=== PATIENT | female | born 1995 | race Caucasian/White ===

== ENCOUNTER 2016-09-27 22:50 | Emergency (ER) | payer SELFPAY ==
[2016-09-27 23:23] LABS: HCG URINE NEGATIVE (NEGATIVE)
[2016-09-27 23:29] LABS: APPEARANCE CLEAR (CLEAR); BILIRUBIN NEGATIVE (NEGATIVE); COLOR YELLOW (YELLOW); GLUCOSE NEGATIVE (NEGATIVE); KETONE NEGATIVE (NEGATIVE); LEUKOCYTE ESTERASE 1+ (NEGATIVE); NITRITE NEGATIVE (NEGATIVE); PROTEIN TRACE mg/dL (NEGATIVE); UROBILINOGEN NORMAL (NORMAL)
[2016-09-27 23:33] LABS: BACTERIA NONE SEEN /hpf (NONE SEEN); EPITHELIAL CELLS 0-5 /hpf (0-5); RED CELLS - URINE 0-5 /hpf (0-5)
[2016-09-27 23:42] LABS: HEMATOCRIT 35.1 % (36.0-48.0); HEMOGLOBIN 12.1 g/dL (12-16); LYMPHOCYTES 21.9 % (15-50); MCH 29.7 pg (26.0-34.0); MCHC 34.5 g/dL (31.0-37.0); MCV 86.2 fL (80.0-100.0); MEAN PLATELET VOLUME 10.2 fL (7.4-10.4); NEUTROPHILS 67.4 % (40-80); PLATELET COUNT 216 10x3/uL (130-400); RBC 4.07 10x6/uL (4.00-5.40); WBC 6.8 10x3/uL (4.8-10.8)
[2016-09-27 23:57] LABS: ALBUMIN 3.1 g/dL (3.4-5.0); ALKALINE PHOSPHATASE 71 U/L (46-116); ALT (SGPT) 16 U/L (10-68); AMYLASE - SERUM 46 U/L (25-115); BILIRUBIN - TOTAL 0.17 mg/dL (0.2-1.3); CALC OSMOLALITY 278 mosm/kg (275-300); CALCIUM 8.7 mg/dL (8.5-10.1); CARBON DIOXIDE 28.3 mmol/L (21.0-32.0); CHLORIDE - SERUM 107 mmol/L (98-107); CREATININE - SERUM 0.8 mg/dL (0.6-1.3); GLUCOSE 99 mg/dL (74-106); LIPASE 219 U/L (73-393); POTASSIUM - SERUM 3.6 mmol/L (3.5-5.1); PROTEIN - SERUM 6.6 g/dL (6.4-8.2); SODIUM 141 mmol/L (136-145); UREA NITROGEN 6 mg/dL (7-18); eGFR NON AFRICAN AMERICAN > 90 mL/min (90-120)
== END 2016-09-28 00:27 | disposition home or self-care (01) ==
LOC: D.ER 22:50
PROVIDERS: Emergency Medicine; Nurse Practitioner Acute Care
DX: K52.9 Noninfective gastroenteritis and colitis, unspecified (principal); F17.200 Nicotine dependence, unspecified, uncomplicated

== ENCOUNTER 2017-06-29 13:28 | Emergency (ER) | payer MEDICAID | END 2017-06-29 16:07 | disposition home or self-care (01) | LOC: D.ER 13:28 | DX: M23.91 Unspecified internal derangement of right knee (principal) ==

== ENCOUNTER 2017-12-18 16:06 | Emergency (ER) | payer MEDICAID ==
[~2017-12-18] VITALS: Ht 170.2 cm; Wt 84.1 kg
[2017-12-18 16:27] VITALS: Ht 170.2 cm; Wt 84.1 kg
[2017-12-18 17:03] LABS: APPEARANCE CLEAR (CLEAR); BILIRUBIN NEGATIVE (NEGATIVE); COLOR YELLOW (YELLOW); GLUCOSE NEGATIVE (NEGATIVE); KETONE NEGATIVE (NEGATIVE); NITRITE NEGATIVE (NEGATIVE); PROTEIN NEGATIVE (NEGATIVE); UROBILINOGEN NORMAL (NORMAL)
[2017-12-18 17:04] LABS: EPITHELIAL CELLS 0-5 /hpf (0-5); RED CELLS - URINE 0-5 /hpf (0-5); WHITE CELLS - URINE 0-5 /hpf (0-5); YEAST >1+ WITH HYPHAE /hpf (NONE SEEN)
[2017-12-18 17:05] LABS: BACTERIA MODERATE /hpf (NONE SEEN); HCG URINE NEGATIVE (NEGATIVE)
[2017-12-18] MEDS ORDERED: MACROBID100 MG PO (17:59)
[2017-12-18] MEDS ORDERED: DIFLUCAN150 MG PO (17:59)
[2017-12-18 18:15] VITALS: BP 117/74
== END 2017-12-18 18:15 | disposition home or self-care (01) ==
LOC: D.ER 16:06
PROVIDERS: Emergency Medicine
DX: N39.0 Urinary tract infection, site not specified (principal); B37.9 Candidiasis, unspecified

== ENCOUNTER 2017-12-26 07:34 | Emergency (ER) | payer MEDICAID ==
[~2017-12-26] VITALS: Ht 170.2 cm; Wt 81.8 kg
[~2017-12-26 07:34] MED LIST: DIFLUCAN150 MG PO; MACROBID100 MG PO
[2017-12-26 07:41] VITALS: Ht 170.2 cm; Wt 81.8 kg
[2017-12-26 08:17] LABS: BASOPHILS 0.3 % (0-2); EOSINOPHILS 2.9 % (0-7); HEMATOCRIT 38.9 % (36.0-48.0); HEMOGLOBIN 13.3 g/dL (12-16); IMMATURE GRANULOCYTES 0.1 % (0-5); LYMPHOCYTES 14.1 % (15-50); MCH 29.7 pg (26.0-34.0); MCHC 34.2 g/dL (31.0-37.0); MCV 86.8 fL (80.0-100.0); MEAN PLATELET VOLUME 10.5 fL (7.4-10.4); MONOCYTES 8.1 % (2-11); NEUTROPHILS 74.5 % (40-80); PLATELET COUNT 254 10x3/uL (130-400); RBC 4.48 10x6/uL (4.00-5.40); RDW 12.5 % (11.5-14.5); WBC 8.9 10x3/uL (4.8-10.8)
[2017-12-26 08:23] LABS: HCG SERUM POSITIVE (NEGATIVE)
[2017-12-26 08:28] LABS: APPEARANCE SL CLDY (CLEAR); BILIRUBIN NEGATIVE (NEGATIVE); COLOR YELLOW (YELLOW); GLUCOSE NEGATIVE (NEGATIVE); KETONE NEGATIVE (NEGATIVE); NITRITE NEGATIVE (NEGATIVE); PROTEIN NEGATIVE (NEGATIVE)
[2017-12-26 08:29] LABS: BACTERIA MODERATE /hpf (NONE SEEN); EPITHELIAL CELLS 0-5 /hpf (0-5); MUCUS <1+ /lpf (NONE SEEN); WHITE CELLS - URINE 0-5 /hpf (0-5)
[2017-12-26 08:31] LABS: ALBUMIN 3.6 g/dL (3.4-5.0); ALKALINE PHOSPHATASE 63 U/L (46-116); ALT (SGPT) 13 U/L (10-68); BILIRUBIN - TOTAL 0.37 mg/dL (0.2-1.3); CALC OSMOLALITY 270 mosm/kg (275-300); CALCIUM 9.1 mg/dL (8.5-10.1); CARBON DIOXIDE 26.1 mmol/L (21.0-32.0); CHLORIDE - SERUM 104 mmol/L (98-107); CREATININE - SERUM 0.8 mg/dL (0.6-1.3); GLUCOSE 94 mg/dL (74-106); POTASSIUM - SERUM 3.6 mmol/L (3.5-5.1); PROTEIN - SERUM 7.4 g/dL (6.4-8.2); SODIUM 137 mmol/L (136-145); UREA NITROGEN 5 mg/dL (7-18); eGFR NON AFRICAN AMERICAN > 90 mL/min (90-120)
[2017-12-26] MEDS ORDERED: KEFLEX500 MG PO (08:40)
[2017-12-26] MEDS ORDERED: ZOFRAN ODT4 MG/UDTAB PO (08:40)
[2017-12-26 08:52] VITALS: BP 121/67
== END 2017-12-26 08:54 | disposition home or self-care (01) ==
LOC: D.ER 07:34
PROVIDERS: Family Medicine
DX: O26.891 Other specified pregnancy related conditions, first trimester (principal); Z3A.01 Less than 8 weeks gestation of pregnancy; R11.2 Nausea with vomiting, unspecified; R82.71 Bacteriuria; M79.81 Nontraumatic hematoma of soft tissue; M79.18 Myalgia, other site

== ENCOUNTER 2018-02-12 09:00 | Emergency (ER) | payer MEDICAID ==
[~2018-02-12] VITALS: Ht 170.2 cm; Wt 122.7 kg
[~2018-02-12 09:00] MED LIST changes: +KEFLEX500 MG PO; +ZOFRAN ODT4 MG/UDTAB PO
[2018-02-12 09:05] VITALS: Ht 170.2 cm; Wt 122.7 kg
[2018-02-12 09:35] LABS: BASOPHILS 0.1 % (0-2); EOSINOPHILS 0 % (0-7); HEMATOCRIT 38.7 % (36.0-48.0); HEMOGLOBIN 13.5 g/dL (12-16); IMMATURE GRANULOCYTES 0.3 % (0-5); LYMPHOCYTES 8.2 % (15-50); MCH 30.3 pg (26.0-34.0); MCHC 34.9 g/dL (31.0-37.0); MCV 86.8 fL (80.0-100.0); MEAN PLATELET VOLUME 10.8 fL (7.4-10.4); MONOCYTES 3.8 % (2-11); NEUTROPHILS 87.6 % (40-80); RBC 4.46 10x6/uL (4.00-5.40); RDW 12.8 % (11.5-14.5); WBC 13.5 10x3/uL (4.8-10.8)
[2018-02-12 09:54] LABS: PLATELET COUNT 340 10x3/uL (130-400)
[2018-02-12 10:00] LABS: APPEARANCE CLOUDY (CLEAR); COLOR YELLOW (YELLOW); GLUCOSE NEGATIVE (NEGATIVE); KETONE LARGE mg/dL (NEGATIVE); NITRITE NEGATIVE (NEGATIVE); PROTEIN 1+ mg/dL (NEGATIVE); SPECIFIC GRAVITY 1.025 (1.005-1.020)
[2018-02-12 10:01] LABS: AMORPHOUS SEDIMENT <1+ /lpf (NONE SEEN); BACTERIA MANY /hpf (NONE SEEN); BILIRUBIN NEGATIVE (NEGATIVE); MUCUS <1+ /lpf (NONE SEEN); RED CELLS - URINE OCC /hpf (0-5); WHITE CELLS - URINE 0-5 /hpf (0-5)
[2018-02-12 10:11] LABS: ALBUMIN 3.8 g/dL (3.4-5.0); ALKALINE PHOSPHATASE 52 U/L (46-116); ALT (SGPT) 10 U/L (10-68); BILIRUBIN - TOTAL 0.48 mg/dL (0.2-1.3); CALC OSMOLALITY 275 mosm/kg (275-300); CALCIUM 9.7 mg/dL (8.5-10.1); CARBON DIOXIDE 22.8 mmol/L (21.0-32.0); CHLORIDE - SERUM 101 mmol/L (98-107); CREATININE - SERUM 0.9 mg/dL (0.6-1.3); GLUCOSE 114 mg/dL (74-106); POTASSIUM - SERUM 3.1 mmol/L (3.5-5.1); PROTEIN - SERUM 8.2 g/dL (6.4-8.2); SODIUM 138 mmol/L (136-145); UREA NITROGEN 9 mg/dL (7-18); eGFR NON AFRICAN AMERICAN 83 mL/min (90-120)
[2018-02-12] MEDS ORDERED: MECLIZINE HCL25 MG PO (10:54)
[2018-02-12] MEDS ORDERED: PEPCID40 MG PO (10:54)
[2018-02-12 11:39] VITALS: BP 126/75
== END 2018-02-12 11:40 | disposition home or self-care (01) ==
LOC: D.ER 09:00
PROVIDERS: Family Medicine
DX: O21.0 Mild hyperemesis gravidarum (principal); Z3A.13 13 weeks gestation of pregnancy

== ENCOUNTER 2018-02-16 07:05 | Emergency (ER) | payer MEDICAID ==
[~2018-02-16] VITALS: Ht 170.2 cm; Wt 78.2 kg
[~2018-02-16 07:05] MED LIST changes: +MECLIZINE HCL25 MG PO; +PEPCID40 MG PO
[2018-02-16 07:14] VITALS: Ht 170.2 cm; Wt 78.2 kg
[2018-02-16 08:11] LABS: BASOPHILS 0 % (0-2); EOSINOPHILS 0 % (0-7); HEMATOCRIT 40.9 % (36.0-48.0); HEMOGLOBIN 14.4 g/dL (12-16); IMMATURE GRANULOCYTES 0.3 % (0-5); LYMPHOCYTES 3.8 % (15-50); MCH 30.1 pg (26.0-34.0); MCHC 35.2 g/dL (31.0-37.0); MCV 85.6 fL (80.0-100.0); MEAN PLATELET VOLUME 10.6 fL (7.4-10.4); MONOCYTES 2.3 % (2-11); NEUTROPHILS 93.6 % (40-80); PLATELET COUNT 318 10x3/uL (130-400); RBC 4.78 10x6/uL (4.00-5.40); RDW 12.6 % (11.5-14.5); WBC 18.2 10x3/uL (4.8-10.8)
[2018-02-16] MEDS ORDERED: ZOFRAN ODT4 MG/UDTAB PO (08:19)
[2018-02-16] MEDS ORDERED: PEPCID AC20 MG PO (08:20)
[2018-02-16 09:10] VITALS: BP 107/59
== END 2018-02-16 09:11 | disposition home or self-care (01) ==
LOC: D.ER 07:05
PROVIDERS: Emergency Medicine
DX: O21.8 Other vomiting complicating pregnancy (principal); Z3A.00 Weeks of gestation of pregnancy not specified

== ENCOUNTER 2018-02-18 16:58 | Emergency (ER) | payer MEDICAID ==
[~2018-02-18] VITALS: Ht 170.2 cm; Wt 78.2 kg
[~2018-02-18 16:58] MED LIST changes: +PEPCID AC20 MG PO
[2018-02-18 17:08] VITALS: Ht 170.2 cm; Wt 78.2 kg
[2018-02-18 17:32] LABS: APPEARANCE HAZY (CLEAR); BILIRUBIN 2+ (NEGATIVE); COLOR DK YELLOW (YELLOW); GLUCOSE NEGATIVE (NEGATIVE); KETONE LARGE mg/dL (NEGATIVE); NITRITE NEGATIVE (NEGATIVE); PROTEIN TRACE mg/dL (NEGATIVE)
[2018-02-18 17:33] LABS: WHITE CELLS - URINE 0-5 /hpf (0-5)
[2018-02-18 17:34] LABS: BACTERIA MANY /hpf (NONE SEEN); RED CELLS - URINE 0-5 /hpf (0-5)
[2018-02-18 17:36] LABS: AMORPHOUS SEDIMENT >1+ /lpf (NONE SEEN)
[2018-02-18 17:47] LABS: BASOPHILS 0.1 % (0-2); EOSINOPHILS 0.2 % (0-7); HEMATOCRIT 37.9 % (36.0-48.0); IMMATURE GRANULOCYTES 0.3 % (0-5); LYMPHOCYTES 15.7 % (15-50); MCH 30.1 pg (26.0-34.0); MCHC 34.3 g/dL (31.0-37.0); MCV 87.7 fL (80.0-100.0); MEAN PLATELET VOLUME 10.3 fL (7.4-10.4); NEUTROPHILS 73.7 % (40-80); RBC 4.32 10x6/uL (4.00-5.40); RDW 12.6 % (11.5-14.5); WBC 10.4 10x3/uL (4.8-10.8)
[2018-02-18 17:55] LABS: PLATELET COUNT 249 10x3/uL (130-400)
[2018-02-18 18:36] LABS: ALBUMIN 3.5 g/dL (3.4-5.0); ALKALINE PHOSPHATASE 51 U/L (46-116); ALT (SGPT) 85 U/L (10-68); AMYLASE - SERUM 51 U/L (25-115); BILIRUBIN - TOTAL 0.89 mg/dL (0.2-1.3); CALC OSMOLALITY 268 mosm/kg (275-300); CALCIUM 9.3 mg/dL (8.5-10.1); CARBON DIOXIDE 27.9 mmol/L (21.0-32.0); CHLORIDE - SERUM 99 mmol/L (98-107); CREATININE - SERUM 0.6 mg/dL (0.6-1.3); GLUCOSE 81 mg/dL (74-106); HCG - QUANTITATIVE (MATERNAL) 92739 mIU/mL; LIPASE 118 U/L (73-393); PROTEIN - SERUM 7.1 g/dL (6.4-8.2); SODIUM 136 mmol/L (136-145); UREA NITROGEN 8 mg/dL (7-18); eGFR NON AFRICAN AMERICAN > 90 mL/min (90-120)
[2018-02-18 18:39] LABS: POTASSIUM - SERUM 2.8 mmol/L (3.5-5.1)
[2018-02-19 02:04] VITALS: BP 102/60
== END 2018-02-19 02:05 | disposition home or self-care (01) ==
LOC: D.ER 16:58
PROVIDERS: Family Medicine
DX: O21.0 Mild hyperemesis gravidarum (principal); Z3A.14 14 weeks gestation of pregnancy

== ENCOUNTER 2018-04-14 10:01 | Emergency (ER) | payer MEDICAID ==
[~2018-04-14] VITALS: Ht 170.2 cm; Wt 72.7 kg
[2018-04-14 10:07] VITALS: Ht 170.2 cm; Wt 72.7 kg
[2018-04-14 11:18] LABS: APPEARANCE CLOUDY (CLEAR); BILIRUBIN NEGATIVE (NEGATIVE); COLOR YELLOW (YELLOW); GLUCOSE NEGATIVE (NEGATIVE); KETONE NEGATIVE (NEGATIVE); NITRITE NEGATIVE (NEGATIVE); PROTEIN NEGATIVE (NEGATIVE); SPECIFIC GRAVITY 1.005 (1.005-1.020); UROBILINOGEN NORMAL (NORMAL)
[2018-04-14 11:20] LABS: BACTERIA MODERATE /hpf (NONE SEEN); EPITHELIAL CELLS 0-5 /hpf (0-5); RED CELLS - URINE 0-5 /hpf (0-5); WHITE CELLS - URINE 0-5 /hpf (0-5)
[2018-04-14] MEDS ORDERED: ZOFRAN4 MG PO (11:33)
[2018-04-14 11:46] VITALS: BP 128/82
== END 2018-04-14 11:48 | disposition home or self-care (01) ==
LOC: D.ER 10:01
PROVIDERS: Emergency Medicine
DX: O21.0 Mild hyperemesis gravidarum (principal); Z3A.22 22 weeks gestation of pregnancy

== ENCOUNTER 2018-04-25 12:11 | Emergency (ER) | payer MEDICAID ==
[~2018-04-25] VITALS: Ht 170.2 cm; Wt 75.0 kg
[~2018-04-25 12:11] MED LIST changes: +ZOFRAN4 MG PO
[2018-04-25 12:21] VITALS: Ht 170.2 cm; Wt 75.0 kg
[2018-04-25] MEDS ORDERED: SUDOGEST60 MG PO (13:43)
[2018-04-25] MEDS ORDERED: OMNICEF300 MG PO (13:43)
[2018-04-25] MEDS ORDERED: PROMETHAZINE W473 ML PO (13:44)
[2018-04-25 13:55] VITALS: BP 116/74
== END 2018-04-25 13:56 | disposition home or self-care (01) ==
LOC: D.ER 12:11
DX: J06.9 Acute upper respiratory infection, unspecified (principal); J40 Bronchitis, not specified as acute or chronic

== ENCOUNTER → 2018-05-23 19:16 | Outpatient (CLI) | payer SELFPAY ==
[2018-04-25 12:21] VITALS: BMI 25.9
[~2018-05-23 19:16] MED LIST changes: +OMNICEF300 MG PO; +PROMETHAZINE W473 ML PO; +SUDOGEST60 MG PO
[2018-05-23 20:20] LABS: APPEARANCE CLEAR (CLEAR); BILIRUBIN NEGATIVE (NEGATIVE); COLOR YELLOW (YELLOW); GLUCOSE NEGATIVE (NEGATIVE); KETONE NEGATIVE (NEGATIVE); NITRITE NEGATIVE (NEGATIVE); PROTEIN NEGATIVE (NEGATIVE); UROBILINOGEN NORMAL (NORMAL)
[2018-05-23 20:28] LABS: UDS - AMPHET NEGATIVE QUAL (NEGATIVE); UDS - BARB NEGATIVE QUAL (NEGATIVE); UDS - BENZO NEGATIVE QUAL (NEGATIVE); UDS - COCAINE NEGATIVE QUAL (NEGATIVE); UDS - OPIATE NEGATIVE QUAL (NEGATIVE); UDS - PCP NEGATIVE QUAL (NEGATIVE); UDS - THC NEGATIVE QUAL (NEGATIVE)
== END | disposition home or self-care (01) ==
LOC: D.LDO 19:16
PROVIDERS: ATTEND Obstetrics & Gynecology
DX: O26.899 Other specified pregnancy related conditions, unspecified trimester (principal); Z3A.00 Weeks of gestation of pregnancy not specified

== ENCOUNTER 2018-07-08 20:42 | Outpatient (CLI) | payer SELFPAY ==
[2018-04-25 12:21] VITALS: BMI 25.9
[2018-07-08 00:17] VITALS: BP 113/65
[2018-07-08 02:18] VITALS: BP 112/64
[2018-07-08 21:19] LABS: APPEARANCE CLEAR (CLEAR); BILIRUBIN NEGATIVE (NEGATIVE); COLOR YELLOW (YELLOW); GLUCOSE NEGATIVE (NEGATIVE); KETONE NEGATIVE (NEGATIVE); NITRITE NEGATIVE (NEGATIVE); PROTEIN TRACE mg/dL (NEGATIVE); UROBILINOGEN NORMAL (NORMAL)
[2018-07-08 21:34] LABS: UDS - AMPHET NEGATIVE QUAL (NEGATIVE); UDS - BARB NEGATIVE QUAL (NEGATIVE); UDS - BENZO NEGATIVE QUAL (NEGATIVE); UDS - COCAINE NEGATIVE QUAL (NEGATIVE); UDS - OPIATE NEGATIVE QUAL (NEGATIVE); UDS - PCP NEGATIVE QUAL (NEGATIVE); UDS - THC NEGATIVE QUAL (NEGATIVE)
[2018-07-08 23:40] LABS: HEMATOCRIT 32.4 % (36.0-48.0); HEMOGLOBIN 10.9 g/dL (12-16); MCH 27.3 pg (26.0-34.0); MCHC 33.6 g/dL (31.0-37.0); MCV 81.2 fL (80.0-100.0); MEAN PLATELET VOLUME 10.7 fL (7.4-10.4); RBC 3.99 10x6/uL (4.00-5.40); RDW 12.2 % (11.5-14.5); WBC 8.5 10x3/uL (4.8-10.8)
[2018-07-08 23:49] LABS: CALC OSMOLALITY 274 mosm/kg (275-300); CALCIUM 8.8 mg/dL (8.5-10.1); CARBON DIOXIDE 25.1 mmol/L (21.0-32.0); CHLORIDE - SERUM 106 mmol/L (98-107); CREATININE - SERUM 0.6 mg/dL (0.6-1.3); GLUCOSE 85 mg/dL (74-106); POTASSIUM - SERUM 3.4 mmol/L (3.5-5.1); SODIUM 140 mmol/L (136-145); UREA NITROGEN 4 mg/dL (7-18); eGFR NON AFRICAN AMERICAN > 90 mL/min (90-120)
[2018-07-09 00:23] VITALS: BP 113/65
[2018-07-09 01:15] VITALS: BP 115/66
[2018-07-09 03:15] VITALS: BP 109/65
[2018-07-09 04:15] VITALS: BP 109/65
[2018-07-09 05:36] LABS: HEMOGLOBIN 11.1 g/dL (12-16)
[2018-07-09 07:54] LABS: HEMATOCRIT 32.6 % (36.0-48.0); MCH 27.3 pg (26.0-34.0); MCHC 33.1 g/dL (31.0-37.0); MCV 82.5 fL (80.0-100.0); MEAN PLATELET VOLUME 11.5 fL (7.4-10.4); RBC 3.95 10x6/uL (4.00-5.40); RDW 12.4 % (11.5-14.5); WBC 8.5 10x3/uL (4.8-10.8)
--- NOTE | 2018-07-09 08:00 | NUR ---
dr morgan here to see pt.
== END 2018-07-09 20:55 | disposition home or self-care (01) ==
LOC: D.LDO 20:42 → D.LD 23:54 → D.LDO 07-09 20:55
PROVIDERS: ATTEND Obstetrics & Gynecology
DX: O60.00 Preterm labor without delivery, unspecified trimester (principal)

== ENCOUNTER → 2018-07-10 21:11 | Outpatient (CLI) | payer SELFPAY ==
[2018-04-25 12:21] VITALS: BMI 25.9
== END | disposition home or self-care (01) ==
LOC: D.LDO 21:11
PROVIDERS: ATTEND Obstetrics & Gynecology
DX: O26.893 Other specified pregnancy related conditions, third trimester (principal); Z3A.34 34 weeks gestation of pregnancy

== ENCOUNTER → 2018-07-22 10:07 | Outpatient (CLI) | payer MEDICAID ==
[2018-04-25 12:21] VITALS: BMI 25.9
[2018-07-22 11:09] LABS: APPEARANCE CLEAR (CLEAR); BACTERIA MODERATE /hpf (NONE SEEN); BILIRUBIN NEGATIVE (NEGATIVE); COLOR COLORLESS (YELLOW); EPITHELIAL CELLS 0-5 /hpf (0-5); GLUCOSE NEGATIVE (NEGATIVE); KETONE NEGATIVE (NEGATIVE); NITRITE NEGATIVE (NEGATIVE); PROTEIN NEGATIVE (NEGATIVE); SPECIFIC GRAVITY 1.005 (1.005-1.020); UROBILINOGEN NORMAL (NORMAL); WHITE CELLS - URINE 0-5 /hpf (0-5)
== END | disposition home or self-care (01) ==
LOC: D.LDO 10:07
PROVIDERS: ATTEND Obstetrics & Gynecology
DX: O26.893 Other specified pregnancy related conditions, third trimester (principal); Z3A.36 36 weeks gestation of pregnancy

== ENCOUNTER → 2018-07-24 21:25 | Outpatient (CLI) | payer MEDICAID ==
[2018-04-25 12:21] VITALS: BMI 25.9
[~2018-07-24 21:25] MED LIST changes: +HYDROCODON-ACE1 EAC7 PO; +MOTRIN600 MG PO
[2018-07-28 21:06] VITALS: BMI 27.1
== END | disposition home or self-care (01) ==
LOC: D.LDO 21:25
PROVIDERS: ATTEND Obstetrics & Gynecology
DX: O26.893 Other specified pregnancy related conditions, third trimester (principal); Z3A.36 36 weeks gestation of pregnancy

== ENCOUNTER 2018-07-28 18:40 | Inpatient (IN) | payer MEDICAID ==
[~2018-07-28] VITALS: Ht 170.2 cm; Wt 78.5 kg
[~2018-07-28 18:40] MED LIST changes: -HYDROCODON-ACE1 EAC7 PO; -MOTRIN600 MG PO
[2018-07-28 19:57] LABS: UDS - AMPHET NEGATIVE QUAL (NEGATIVE); UDS - BARB NEGATIVE QUAL (NEGATIVE); UDS - BENZO NEGATIVE QUAL (NEGATIVE); UDS - COCAINE NEGATIVE QUAL (NEGATIVE); UDS - OPIATE NEGATIVE QUAL (NEGATIVE); UDS - PCP NEGATIVE QUAL (NEGATIVE); UDS - THC NEGATIVE QUAL (NEGATIVE)
[2018-07-28 20:09] LABS: APPEARANCE CLEAR (CLEAR); BILIRUBIN NEGATIVE (NEGATIVE); COLOR STRAW (YELLOW); GLUCOSE NEGATIVE (NEGATIVE); KETONE NEGATIVE (NEGATIVE); NITRITE NEGATIVE (NEGATIVE); PROTEIN 1+ mg/dL (NEGATIVE); SPECIFIC GRAVITY 1.005 (1.005-1.020); UROBILINOGEN NORMAL (NORMAL)
[2018-07-28 20:11] LABS: BACTERIA FEW /hpf (NONE SEEN); RED CELLS - URINE 0-5 /hpf (0-5); WHITE CELLS - URINE 0-5 /hpf (0-5)
[2018-07-28 21:04] LABS: HEMATOCRIT 31.1 % (36.0-48.0); HEMOGLOBIN 10.2 g/dL (12-16); MCH 26.3 pg (26.0-34.0); MCHC 32.8 g/dL (31.0-37.0); MCV 80.2 fL (80.0-100.0); RBC 3.88 10x6/uL (4.00-5.40); RDW 13.2 % (11.5-14.5); WBC 10.7 10x3/uL (4.8-10.8)
[2018-07-28 21:06] VITALS: BP 135/80; Ht 170.2 cm; Wt 78.5 kg
[2018-07-29 07:27] VITALS: BP 120/71
[2018-07-29 07:42] LABS: BASOPHILS 0.1 % (0-2); EOSINOPHILS 0.1 % (0-7); HEMATOCRIT 30.5 % (36.0-48.0); IMMATURE GRANULOCYTES 0.3 % (0-5); LYMPHOCYTES 11.4 % (15-50); MCH 26.3 pg (26.0-34.0); MCHC 32.8 g/dL (31.0-37.0); MCV 80.3 fL (80.0-100.0); MONOCYTES 7.6 % (2-11); NEUTROPHILS 80.5 % (40-80); PLATELET COUNT 258 10x3/uL (130-400); RDW 13.1 % (11.5-14.5); WBC 14.6 10x3/uL (4.8-10.8)
[2018-07-29 13:13] VITALS: BP 134/77
[2018-07-29 16:27] VITALS: BP 125/77
[2018-07-29 20:24] VITALS: BP 125/60
[2018-07-30 04:55] VITALS: BP 124/70
[2018-07-30 07:30] VITALS: BP 116/63
[2018-07-30 08:15] LABS: RAPID PLASMA REAGIN Non Reactive (Non Reactive)
[2018-07-30] MEDS ORDERED: HYDROCODON-ACE1 EAC7 PO (17:22)
[2018-07-30] MEDS ORDERED: MOTRIN600 MG PO (17:24)
== END 2018-07-30 19:45 | disposition home or self-care (01) | DRG 807 ==
LOC: D.LDO 18:40 → D.LD 20:26 → D.WS 07-29 19:20
PROVIDERS: ADMIT Obstetrics & Gynecology; ATTEND Obstetrics & Gynecology
PROC: 10E0XZZ Delivery of Products of Conception, External Approach (ICD-10-PCS; principal; 2018-07-28)
PROC: 0HQ9XZZ Repair Perineum Skin, External Approach (ICD-10-PCS; 2018-07-28)
DX: O98.32 Other infections with a predominantly sexual mode of transmission complicating childbirth (principal); Z37.0 Single live birth; A59.9 Trichomoniasis, unspecified; Z3A.37 37 weeks gestation of pregnancy; O70.0 First degree perineal laceration during delivery